=== PATIENT | male | born 1950 | race Two or more races ===

== ENCOUNTER 2020-07-03 08:38 | Day surgery (SDC) | payer MEDICARE, OTHER ==
[~2020-07-03] VITALS: Ht 177.8 cm; Wt 85.5 kg
[~2020-07-03 08:38] MED LIST: ADULT ASPIRIN R81 MG PO; ASTRAGALUS ROOT1 GM MISC; ATENOLOL25 MG PO; CHOLESTYRAMINE P4 GM PO; EZALLOR SPRINKLE5 MG PO; MULTI VITAMIN1 EACH PO; SILDENAFIL CIT100 MG PO; TURMERIC500 M2 PO; VITAMIN C125 MG PO; ZINC10 MG PO
--- NOTE | 2020-07-03 10:49 | NUR ---
07/03/20 Mohini9 Naz Trevizo 1042- PT ARRIVES TO PACU AROUSABLE TO VOICE. PT REPORTS NO PAIN OR NAUSEA AND FALLS INSTANTLY BACK TO SLEEP. RESP EVEN AND UNLABORED. OXYGEN SAT LOW 90'S ON 3L VIA NC. PT AWOKEN AGAIN AND ENCOURAGED TO TAKE DEEP BREATHS. PT IS ABLE TO DO THIS AND OXYGEN SAT INCREASED TO HIGH 90'S ON 3L VIA NC. PT FALLS BACK TO SLEEP AFTER THIS. 1047- PT PASSING LARGE AMOUNTS OF FLATUS.
--- NOTE | 2020-07-03 17:42 | OR ---
[facility] [address] [place], [place] [address] Signed DATE OF OPERATION: 07/03/2020 SURGEON: Aidee Powell MD PREOPERATIVE DIAGNOSES: 1. Epigastric and subxiphoid abdominal pain. 2. Screening. 3. Diverticulosis. POSTOPERATIVE DIAGNOSES: 1. Tiny hiatal hernia. 2. Asrn-nx-nfsxznkf diffuse gastritis. 3. . 4. A 4 mm polyp at 20 cm. 5. Rectosigmoid junction at 18 cm. 6. Moderate sigmoid diverticulosis. 7. Moderately tortuous sigmoid colon. PROCEDURES: 1. EGD with CLOtest and biopsies of the antrum and GE junction. 2. Colonoscopy with hot biopsy. ESTIMATED BLOOD LOSS: None. INDICATIONS: Raymond is a 70-year-old gentleman, asked to see me for upper and lower endoscopy. He works as a developer in our area. He said he has been having epigastric and subxiphoid abdominal pain. In addition, he is in need of a followup screening colonoscopy. He has had at least three prior colonoscopies. His last colonoscopy was in October of 2009. He does have left-sided diverticulosis. No prior personal history of any colonic polyps. There is no family history of colon cancer or polyps. He said he has no lower GI complaints. I gave now booklets in the office on both upper and lower endoscopy. We had reviewed those together in detail. He understands the nature of that test along with the risks including, but not limited to gas bloating, crampy abdominal pain, bleeding, perforation requiring surgery, and missed diagnosis. He understands the need for IV conscious sedation. He had expressed understanding and wished to proceed. PROCEDURE NOTE: Ramón was taken into our endoscopy suite and placed in the supine semi-recumbent Electronically Signed By: AIDEE POWELL MD 07/03/20 1742 PATIENT NAME: RAMÓN CASTORENA OPERATIVE REPORT DATE OF : 54 REPORT #: [id number] PHYSICIAN: AIDEE POWELL MD PCP: GEOVANI ESPINOZA MD REPORT IS CONFIDENTIAL AND NOT TO BE RELEASED WITHOUT AUTHORIZATION [facility] [address] [place], [place] [address] Signed position. He was given a total of 8 mg of Versed and 150 mcg of fentanyl to cover the case. The posterior oropharynx was anesthetized with lidocaine spray. A bite block was utilized for the upper endoscopy. The adult gastroscope was introduced and advanced out the third portion of the duodenum under direct visualization of camera without difficulty. The duodenum and pyloric channel were unremarkable. The stomach showed [id number] diffuse erythematous changes throughout. No ulcerations in the pyloric bulb nor the stomach. We took a biopsy from the antrum for pathologic review as well as CLOtest. The incisura, body, and fundus of the stomach were unremarkable. Upon retroflexion of scope, he probably has just a very tiny hiatal hernia. The scope was withdrawn up through the area of the GE junction, which was compliant without stricture. He has minimal disruption to the Z-line. There was no Scanlon's mucosa. We went ahead and took a biopsy along the edge of the Z-line for pathologic review. His distal middle and upper esophagus were unremarkable. After this, the gas was suctioned out and the gastroscope removed. Ramón tolerated the procedure quite well. Ramón was rotated into the left lateral decubitus position. He was maintained on Versed and fentanyl IV. A digital rectal exam was performed and he had good sphincter tone. Prostate is only mildly indurated and enlarged. The adult colonoscope was introduced and advanced under direct visualization of camera. It took just a bit to get through his sigmoid colon as it is tortuous and he does have moderate diverticula; they were moderate in size, moderate in number, and scattered about. I did give us some resistance as we passed the scope and we used extra sedation and abdominal compression as well as additional lubrication. We made all the way up next to the ileocecal valve. We could not quite see right behind the ileocecal valve. Otherwise, his prep was good. We had taken pictures throughout for photodocumentation. The scope was slowly withdrawn. He does have diverticula as described above. We saw two tiny polyps in his distal sigmoid colon, they were easily removed with hot biopsy forceps. His rectosigmoid junction is right about 18 cm. The rectum itself was unremarkable. Upon retroflexion of scope, there was no additional pathology noted above the anal canal. After this, the gas was suctioned out and colonoscope was removed. Ramón tolerated the procedure quite well. RECOMMENDATIONS: I will see Ramón in my office in 7 to 14 days to review his results. Aidee Powell MD ALB/MODL Electronically Signed By: AIDEE POWELL MD 07/03/20 1742 PATIENT NAME: RAMÓN CASTORENA OPERATIVE REPORT DATE OF : 54 REPORT #: [id number] PHYSICIAN: AIDEE POWELL MD PCP: GEOVANI ESPINOZA MD REPORT IS CONFIDENTIAL AND NOT TO BE RELEASED WITHOUT AUTHORIZATION [facility] [address] [place] [address] Signed /[id number] cc: MD Geovani Guzman MD Copies: AIDEE POWELL MD, KEVIN R MD ~ Electronically Signed By: AIDEE POWELL MD 07/03/20 1742 PATIENT NAME: RAMÓN CASTORENA OPERATIVE REPORT DATE OF : 54 REPORT #: [id number] PHYSICIAN: ADIEE POWELL MD PCP: GEOVANI ESPINOZA MD REPORT IS CONFIDENTIAL AND NOT TO BE RELEASED WITHOUT AUTHORIZATION
--- NOTE | 2020-07-04 15:52 | PATH ---
[facility] [address] [place], [place] [address] Signed SPECIMEN(S): D COLON POLYP AT 20 CM SPECIMEN(S): A ANTRUM/PYLORUS SPECIMEN(S): B GE JUNCTION SPECIMEN(S): C COLON POLYP AT 22 CM SPECIMEN SOURCE: A. ANTRUM/PYLORUS B. GE JUNCTION C. COLON POLYP AT 22 CM D. COLON POLYP AT 20 CM CLINICAL HISTORY: Esophagogastroduodenoscopy, colonoscopy. Epigastric pain, diverticulitis. DX: Gastritis, diverticulitis, polyps. MICROSCOPIC DESCRIPTION: Histologic sections of all submitted blocks are examined by light microscopy. These findings, together with the gross examination, support the pathologic diagnosis. FINAL PATHOLOGIC DIAGNOSIS: A. Antrum/pylorus: - Antral-type mucosa with focal slight chronic inflammation. - Negative for evidence of Helicobacter organisms under routine HE stained sections. B. GE junction: - Squamocolumnar junction with reactive features and mild chronic inflammation. - Negative for specialized intestinal metaplasia or dysplasia. C. Colon polyp at 22 cm: - Hyperplastic polyp (1 fragment). D. Colon polyp at 20 cm: - Hyperplastic polyp (1 fragment). [id number] GROSS DESCRIPTION: Four specimens are received in four containers, labeled "AP." A. The specimen, labeled "AP, 1," and designated on the requisition "antrum/pylorus," is received in formalin and consists of one [place] soft tissue fragment that measures 0.3 cm in greatest dimension. The specimen is entirely submitted in cassette (A1). B. The specimen, labeled "AP, 2," and designated on the requisition "GE PATIENT NAME: FERNANDO CASTORENA PATHOLOGY DATE OF : 54 REPORT #: [id number] PHYSICIAN: LIV GASTELUM PCP: GEOVANI ESPINOZA MD REPORT IS CONFIDENTIAL AND NOT TO BE RELEASED WITHOUT AUTHORIZATION [facility] [address] [place], [place] [address] Signed junction," is received in formalin and consists of one [place] soft tissue fragment that measures 0.4 cm in greatest dimension. The specimen is entirely submitted in cassette (B1). C. The specimen, labeled "AP, 3," and designated on the requisition "colon polyp at 22 cm," is received in formalin and consists of one [place] soft tissue fragment that measures 0.3 cm in greatest dimension. The specimen is entirely submitted in cassette (C1). D. The specimen, labeled "AP, 4," and designated on the requisition "colon polyp at 20 cm," is received in formalin and consists of one [place] soft tissue fragment that measures 0.3 cm in greatest dimension. The specimen is entirely submitted in cassette (D1). AT (under the direct supervision of a pathologist) The Gross Description was prepared using a voice recognition system. The report was reviewed for accuracy; however, sound-alike word errors, addition and/or deletions may occur. If there is any question about this report, please contact Client Services. PERFORMING LABORATORY: The technical component was performed by [facility], [address] [place] [id number] (Automatic Developer: Shanon Dumont MD; CLIA# [id number]). Professional interpretation was performed by [facility], [address], [place] [address]. Diagnostician: Tray Flaherty MD Pathologist Electronically Signed 07/04/2020 Copies: ~ PATIENT NAME: FERNANDO CASTORENA PATHOLOGY DATE OF : 54 REPORT #: [id number] PHYSICIAN: LIV GASTELUM PCP: GEOVANI ESPINOZA MD REPORT IS CONFIDENTIAL AND NOT TO BE RELEASED WITHOUT AUTHORIZATION
== END 2020-07-03 11:32 | disposition home or self-care (01) ==
LOC: DS 08:38 → OPS 08:38 → DS 08:43 → OPS 09:30 → DS 09:45 → OPS 09:45
PROVIDERS: ATTEND Colon & Rectal Surgery
PROC: 0DBP8ZX Excision of Rectum, Via Natural or Artificial Opening Endoscopic, Diagnostic (ICD-10-PCS; 2020-07-03)
PROC: 0DBN8ZX Excision of Sigmoid Colon, Via Natural or Artificial Opening Endoscopic, Diagnostic (ICD-10-PCS; 2020-07-03)
PROC: 0DB48ZX Excision of Esophagogastric Junction, Via Natural or Artificial Opening Endoscopic, Diagnostic (ICD-10-PCS; principal; 2020-07-03 09:30)
PROC: 0DB78ZX Excision of Stomach, Pylorus, Via Natural or Artificial Opening Endoscopic, Diagnostic (ICD-10-PCS; 2020-07-03 09:30)
DX: Z12.11 Encounter for screening for malignant neoplasm of colon (principal); K29.50 Unspecified chronic gastritis without bleeding; K63.5 Polyp of colon; K20.90 Esophagitis, unspecified without bleeding; K44.9 Diaphragmatic hernia without obstruction or gangrene; K57.30 Diverticulosis of large intestine without perforation or abscess without bleeding; Q43.8 Other specified congenital malformations of intestine; N40.0 Benign prostatic hyperplasia without lower urinary tract symptoms; I10 Essential (primary) hypertension; E78.00 Pure hypercholesterolemia, unspecified; Z90.49 Acquired absence of other specified parts of digestive tract; Z79.899 Other long term (current) drug therapy
CPT/HCPCS: 86677; 99153; G0500; J2250; J3010; J7121